=== PATIENT | male | born 1955 | race Caucasian/White ===

== ENCOUNTER 2016-08-02 04:04 | Emergency (ER) | payer MEDICARE, OTHER ==
[2016-08-02] MEDS ORDERED: 0.9 % SODIUM CHLORIDE 1,000 ML IV ONE (04:09)
[2016-08-02] MEDS: 0.9 % SODIUM CHLORIDE 1,000 ML IV ONE (04:40)
[2016-08-02 04:58] LABS: eGFR (African) > 60; eGFR (Non-African) > 60
[2016-08-02 04:59] LABS: EOSINOPHILS % 1.4 % (0.0-6.8); MEAN CORPUSCULAR HEMOGLOBIN 31.7 pg (28.0-34.0); MEAN CORPUSCULAR VOLUME 93.3 fl (80.0-100.0); MONOCYTES % 6.7 % (0.0-11.0); NEUTROPHILS # 2.2 # k/uL (1.4-7.7)
--- NOTE | 2016-08-02 05:09 | Diagnostic Imaging Report ---
CHICO CARLOS~ [facility] [address] [facility] [address] [address] ~ ~ ~ ~ Report Submission Date: August 02, 2016 5:01:32 AM CDT Patient ~ Study Name: OBI CARRILLO ~ Date: August 02, 2016 4:46:54 AM CDT ~ Modality Type: CR Gender: M ~ Description: CHEST : 55 ~ Institution: [facility] Physician: CHICO CARLOS ~ ~ ~ ~ Portable chest History: Syncope Findings: Rightward tracheal deviation at the thoracic inlet suggests a goiter. Heart size and pulmonary vascularity are normal. The lungs are clear. No pleural effusions are observed. Osseous structures are unremarkable except for distal left clavicle resection. Impression: 1. Possible left goiter. Recommend ultrasound followup. 2. No acute cardiopulmonary abnormality observed. ~ Electronically signed on August 02, 2016 5:01:32 AM CDT by: Elmer NARVAEZ
--- NOTE | 2016-08-02 05:17 | ED Physician Documentation ---
General Adult - HISTORIAN Historian: patient, spouse - HPI Stated Complaint: ABD PAIN Chief Complaint: General Adult Additional Information: Trying to have bowel movement at home. Has been constipated, efforts painful. [place] "fuzzy," stood up, and passed out. Had hollered for . Came to ER per EMS. Says he had a "blockage." Had diarrhea in ER. Last normal bowel movement . Recent illness with nausea and vomiting; lasted 4 weeks; in bed and weak for two weeks. Also thinks metoprolol needs to be adjusted. BP feels low at times. 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 angina, blood clot, 1994) Surgeries/Procedures: other (stent x1, 02/17) Allergies/Adverse Reactions: Allergies Allergy/AdvReac Type Severity Reaction Status Date / Time No Known Allergies Allergy Verified 08/02/16 04:22 Home Medications: Ambulatory Orders Medication Instructions Recorded Atorvastatin Calcium 80 mg PO HS u2 02/18/15 Nitroglycerin 0.4 mg SL PRN PRN u2 02/18/15 Metoprolol Tartrate [Lopressor] 25 mg PO DAILY 06/18/15 - SOCIAL HX Smoking History: non-smoker - FAMILY HX Family History: No - VITAL SIGNS Vital Signs: Vital Signs Temp Pulse Resp BP Pulse Ox 98.7 F 75 22 108/75 98 08/02/16 04:18 08/02/16 04:39 08/02/16 04:18 08/02/16 04:18 08/02/16 04:39 - REVIEWED ASSESSMENTS Nursing Assessment Reviewed: Yes Vitals Reviewed: Yes Progress - Progress Progress: Portable chest History: Syncope Findings: Rightward tracheal deviation at the thoracic inlet suggests a goiter. Heart size and pulmonary vascularity are normal. The lungs are clear. No pleural effusions are observed. Osseous structures are unremarkable except for distal left clavicle resection. Impression: 1. Possible left goiter. Recommend ultrasound followup. 2. No acute cardiopulmonary abnormality observed. Electronically signed on August 02, 2016 5:01:32 AM CDT by: Elmer Foss EKG: sinus rhythm/sinus arrhythmia, 69 BPM Lags with 57.4% lympns, Modest elevations ast, alt, alk phos. Trop <0.03 US thyroid ordered as outpatient. Results to Dr. Zimmer. ED Results Lab/Radiology - Orders Orders: ED Orders Category Date Time Status Continuous EKG monitoring Q1H Care 08/02/16 04:29 Active Continuous Pulse Oximetry Q1H Care 08/02/16 04:[address] IV Lock 1T Care 08/02/16 04:30 Active CHEST 1 VIEW [RAD] Stat Exams 08/02/16 Ordered CBC/PLATELET/DIFF Routine Lab 08/02/16 04:37 Received CMP Routine Lab 08/02/16 04:36 Received TROPONIN I (cTnI) Stat Lab 08/02/16 04:36 Received URINALYSIS Routine Lab 08/02/16 Ordered 0.9 % Sodium Chloride [Normal Saline] 1,000 ml Med 08/02/16 04:09 Discontinued IV .STK-MED 0.9 % Sodium Chloride [Normal Saline] 1,000 ml Med 08/02/16 04:30 Active IV Q1H EKG WITH COMPARISON Stat Ther 08/02/16 Ordered General Adult Physical Exam - PHYSICAL EXAM GENERAL APPEARANCE: no distress (at time of exam, after bowel movement, diarrhea.) EENT: eye inspection normal, ENT inspection normal NECK: normal inspection, supple RESPIRATORY: no resp distress, breath sounds normal, other (right posterolat lower rib area tender to palpation with tiny purple ecchymosis and superficial abrasion) CVS: reg rate & rhythm, heart sounds normal, no murmur ABDOMEN: soft, normal bowel sounds, non-tender RECTAL: deferred BACK: normal inspection, no CVA tenderness SKIN: warm/dry, normal color EXTREMITIES: normal range of motion, no evidence of injury NEURO: CN's nml as tested, motor nml, sensation nml, cognition normal Discharge Clincal Impression: Vasovagal episode Diarrhea Qualifiers: Diarrhea type: unspecified type Qualified Code(s): R19.7 - Diarrhea, unspecified Referrals: Vasquez Zimmer MD [Primary Care Provider] - 2 Days Home Medications: Ambulatory Orders Atorvastatin Calcium 80 mg PO HS u2 02/18/15 Nitroglycerin 0.4 mg SL PRN PRN u2 02/18/15 Metoprolol Tartrate [Lopressor] 25 mg PO DAILY 06/18/15 Condition: Good Disposition: 01 HOME, SELF-CARE Decision to Admit: NO Decision Time: 05:15
[2016-08-02 05:32] VITALS: BP 122/72
== END 2016-08-02 05:32 | disposition home or self-care (01) ==
LOC: ED 04:04
DX: R55 Syncope and collapse (principal)
CPT/HCPCS: 71010; 80053; 84484; 85025; J7030; 96360; 96361; 99283